=== PATIENT | female | born 1975 | race Caucasian/White ===

== ENCOUNTER 2017-01-01 12:04 | Emergency (ER) | payer SELFPAY ==
[~2017-01-01] VITALS: Ht 167.6 cm; Wt 72.6 kg
[2017-01-01 15:12] VITALS: BP 129/68
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
[2017-01-01] MEDS ORDERED: Haloperidol 5mg/ml Inj IM ONE (17:30)
[2017-01-01] MEDS ORDERED: LORazepam Inj 2mg/ml 1ml IM ONE (17:30)
[2017-01-01 17:34] VITALS: BP 136/72
[2017-01-01 19:13] VITALS: BP 121/70
[2017-01-01 19:51] LABS: ACETAMINOPHEN < 10 ug/mL (10-30); ALANINE AMINOTRANSFERASE 12 U/L (3-33); ALBUMIN/GLOBULIN RATIO 1.2 (1.0-2.7); ALCOHOL < 10 mg/dL; ANION GAP 14 (5-15); ASPARTATE AMINO TRANSFERASE 15 U/L (5-40); CALCIUM 8.5 mg/dL (8.6-10.2); CARBON DIOXIDE 25 mEQ/L (20-30); CHLORIDE 100 mEQ/L (98-107); CREATININE 0.7 mg/dL (0.5-0.9); GLOMERULAR FILTRATION RATE > 60 mL/min (>60); HEMOLYSIS 11; POTASSIUM 3.7 mEQ/L (3.4-4.9); SODIUM 139 mEQ/L (135-145); TOTAL PROTEIN 6.2 g/dL (6.6-8.7)
[2017-01-01 20:01] LABS: BASOPHILS % (AUTO) 1.5 % (0.0-2.0); EOSINOPHILS % (AUTO) 4.7 % (0.0-3.0); LYMPHOCYTES % (AUTO) 23.5 % (20.0-45.0); MEAN CORPUSCULAR HEMOGLOBIN 31.9 PG (27.0-31.0); MEAN CORPUSCULAR HGB CONC 35.1 G/DL (32.0-36.0); MEAN CORPUSCULAR VOLUME 91 FL (80-99); MEAN PLATELET VOLUME 9.6 FL (6.5-10.1); MONOCYTES % (AUTO) 8.4 % (1.0-10.0); NEUTROPHILS % (AUTO) 61.9 % (45.0-75.0); PLATELET COUNT 157 K/UL (150-450); RED BLOOD COUNT 3.76 M/UL (4.20-5.40); RED CELL DISTRIBUTION WIDTH 12.4 % (11.6-14.8); WHITE BLOOD COUNT 9.2 K/UL (4.8-10.8)
[2017-01-01 21:49] VITALS: BP 127/72
[2017-01-02 00:43] VITALS: BP 142/88
[2017-01-02 03:49] VITALS: BP 129/90
[2017-01-02 07:29] VITALS: BP 116/75
[2017-01-02 11:55] VITALS: BP 116/75
[2017-01-02 13:27] VITALS: BP 116/75
== END 2017-01-02 13:27 ==
LOC: EDBD 12:04 → EMR 13:49
DX: F23 Brief psychotic disorder (principal); F15.10 Other stimulant abuse, uncomplicated
CPT/HCPCS: 36415; 80053; 80300; 81025; 85025; 96372; 99285; G0480; J1630; 80329